=== PATIENT | female | born 1995 | race Caucasian/White ===

== ENCOUNTER 2018-07-20 11:53 | Emergency (ER) | payer MEDICAID ==
[2018-07-20] MEDS ORDERED: ONDANSETRON HCL IV 4 MG/2 ML VIAL IV ONE (12:19)
[2018-07-20] MEDS ORDERED: 0.9 % SODIUM CHLORIDE 1,000 ML BAG IV ONE ×2 (12:19→13:13)
[2018-07-20] MEDS ORDERED: SUCRALFATE 1 G/10 ML UD PO ONE (12:19)
--- NOTE | 2018-07-20 12:19 | Emergency Department Record ---
History of Present Illness - General Chief complaint: Vomiting Stated complaint: VOMITING/ Time Seen by Provider: 07/20/18 12:16 Source: Patient Mode of Arrival: Ambulatory Limitations: No limitations - History of Present Illness Initial comments: The patient is here due to nausea, vomiting and upper abdominal pain for 1-2 weeks. She denies any lower AP, fever, chills, or vaginal bleeding. The patient is 9 weeks by dates and did contact her OB and was given Phenergan but it is not helping. MD complaint: Nausea, Vomiting Onset/Timin -: Week(s) Description of Vomiting: Bilious Improves with: None Worsens with: None Associated Symptoms: Nausea/vomiting - Related Data Previous Rx's Medication Instructions Recorded Metoclopramide HCl [Reglan] 10 mg PO TID #20 tablet 07/20/18 Allergies Allergy/AdvReac Type Severity Reaction Status Date / Time No Known Drug Allergies Allergy Verified 07/20/18 12:03 Travel Screening - Travel/Exposure Within Last 30 Days Have you traveled within the last 30 days?: No Review of Systems Constitutional: Denies: Chills, Fever Eyes: Denies: Eye discharge ENT: Denies: Congestion Respiratory: Denies: Cough, Dyspnea Past Medical History - SOCIAL HISTORY Smoking Status: Never smoker Alcohol Use: None Drug Use: None - RESPIRATORY Hx Respiratory Disorders: No - CARDIOVASCULAR Hx Cardio Disorders: No - NEURO Hx Neuro Disorders: No - GI Hx GI Disorders: No - Hx Genitourinary Disorders: No - ENDOCRINE Hx Endocrine Disorders: No - MUSCULOSKELETAL Hx Musculoskeletal Disorders: No - PSYCH Hx Psych Problems: No - HEMATOLOGY/ONCOLOGY Hx Hematology/Oncology Disorders: No Family Medical History Any Significant Family History?: No Physical Exam - General General Appearance: Alert, Oriented x3, Cooperative, No acute distress - Head Head exam: Atraumatic, Normocephalic, Normal inspection - Eye Eye exam: Normal appearance, PERRL, EOMI - ENT Throat exam: Normal inspection. negative: Tonsillar erythema, Tonsillar exudate - Neck Neck exam: Normal inspection, Full ROM. negative: Tenderness - Respiratory Respiratory exam: Normal lung sounds bilaterally. negative: Respiratory distress - Cardiovascular Cardiovascular Exam: Regular rate, Normal rhythm, Normal heart sounds - GI/Abdominal GI/Abdominal exam: Soft, Normal bowel sounds, Tenderness (There is mild epigastric tenderness to palpation.). negative: Distended, Rigid - Extremities Extremities exam: Normal inspection, Full ROM, Normal capillary refill. negative: Tenderness Course Vital Signs 07/20/18 12:00 Temperature 98.4 F Pulse Rate 61 Respiratory 20 Rate Blood Pressure 108/70 Pulse Ox 100 - Reevaluation(s) Reevaluation #1: The patient is doing better but still mildly nauseated. We are still waiting on the US results. 07/20/18 14:00 Reevaluation #2: The patient is doing a lot better at this time and denies pain. Her vitals are normal along with her temp and she is very hundry. The patient no longer is vomiting and denies any AP. On exam her abdomen is very soft and nontender. I did discuss the need for F/U and adding Zofran to the home Phenergan. 07/20/18 15:33 07/20/18 15:41 Medical Decision Making - Data Complexity MDM Data: Labs Ordered and/or Reviewed, X-Ray Ordered and/or Reviewed - Lab Data Result diagrams: 07/20/18 12:20 07/20/18 12:20 - Radiology Data Radiology results: Report reviewed (US: Neg per Rad.) Disposition Disposition: Discharge Clinical Impression: Hyperemesis gravidarum Disposition: Home, Self-Care Condition: (2) Stable Instructions: Hyperemesis Gravidarum (ED) Additional Instructions: Please take the Reglan in addition to the Phenergan. Please see your doctor next week for recheck and return to the ER for any worsening symptoms, pain, fever, or vomiting. Prescriptions: Metoclopramide HCl [Reglan] 10 mg PO TID #20 tablet Forms: Patient Portal Access Time of Disposition: 15:37 Quality - Quality Measures Quality Measures: N/A - Blood Pressure Screening View Details: Yes Does Patient Have Any of the Following: No Blood Pressure Classification: Normal BP Reading Systolic Measurement: 108 Diastolic Measurement: 70 Screening for High Blood Pressure: < Normal BP, F/U Not Required > [G8783]
[2018-07-20 12:38] LABS: HEMATOCRIT 42.3 % (35.0-47.0); HEMOGLOBIN 14.2 gm/dl (11.6-16.0); MEAN CORPUSCULAR HEMOGLOBIN 30.2 pg (27-33); MEAN CORPUSCULAR HGB CONC 33.6 g/dl (32-36); MEAN PLATELET VOLUME 10.5 fl (7.4-10.4); PLATELET COUNT 356 K/uL (130-400); WHITE BLOOD COUNT W/O DIFF 14.1 K/uL (4.2-12.2)
[2018-07-20 12:53] LABS: BLOOD UREA NITROGEN 13 mg/dL (6-20); CREATININE 0.7 mg/dL (0.5-0.9); EST GLOMERULAR FILTRATION RATE > 60 mL/min; TOTAL PROTEIN 8.3 g/dL (6.6-8.7)
[2018-07-20 12:55] LABS: GLUCOSE,RANDOM 95 mg/dL (74-109)
[2018-07-20 12:58] LABS: ALB/GLOB RATIO 1.5 (1.1-1.8); ALKALINE PHOSPHATASE 104 U/L (35-104); ALT/SGPT 11 U/L (<33); AST/SGOT 12 U/L (10.0-35.0)
[2018-07-20] MEDS ORDERED: PROMETHAZINE HCL 12.5 MG in 0.9 % SODIUM CHLORIDE 100ML 100 ML IVPB ONE (13:05)
[2018-07-20 13:08] LABS: URINE APPEARANCE CLEAR; URINE BILIRUBIN SMALL (NEGATIVE); URINE BLOOD MODERATE (NEGATIVE); URINE COLOR YELLOW; URINE GLUCOSE (UA) NEGATIVE (NEGATIVE); URINE LEUKOCYTE ESTERASE NEGATIVE (NEGATIVE); URINE NITRITE NEGATIVE (NEGATIVE); URINE PROTEIN TRACE (NEGATIVE)
[2018-07-20 13:10] LABS: URINE KETONE 80 mg/dL (NEGATIVE)
[2018-07-20 13:14] LABS: URINE BACTERIA 2+; URINE EPITHELIAL CELLS >50 (FEW); URINE MUCUS HEAVY; URINE RBC 0 - 2 (NONE SEEN); URINE WBC NONE SEEN (0-2/hpf)
[2018-07-20] MEDS ORDERED: MAGNESIUM HYDROXIDE/AL HYDROX 30 ML, LIDOCAINE VISC 2% 15ML 15 ML PO ONE ×2 (13:42)
--- NOTE | 2018-07-21 20:37 | ULTRASOUND REPORT ---
EXAM: ULTRASOUND ABDOMEN, COMPLETE HISTORY: VOMITING. TECHNIQUE: Sonographic evaluation of the abdomen was performed using wolf- scale imaging. FINDINGS: The liver is homogeneous. No focal hepatic mass. No gallstones or ductal dilatation. The common bile duct measures 2 mm. The pancreas and spleen appear normal. The kidneys are normal in size with no hydronephrosis or nephrolithiasis. The abdominal aorta and inferior vena cava are patent. IMPRESSION: UNREMARKABLE ABDOMINAL SONOGRAM. JOB NUMBER: [id number] MTDD
== END 2018-07-20 15:45 | disposition home or self-care (01) ==
LOC: ER 11:53
DX: O21.0 Mild hyperemesis gravidarum (principal); Z3A.09 9 weeks gestation of pregnancy
CPT/HCPCS: 99284 ×2; 96365; 96375; 96361; 83690; 84702; 80053; 81001; 85027; 76700; J2405; J2550; J7030